=== PATIENT | female | born 1965 | race Caucasian/White ===

== ENCOUNTER 2017-01-15 13:27 | Day surgery (SDC) | payer BC ==
[~2017-01-15] VITALS: Ht 157.5 cm; Wt 80.6 kg
[~2017-01-15 13:27] MED LIST: ENALAPRIL; GLYBURIDE; METF500T4
[2017-01-15 13:58] VITALS: Ht 157.5 cm; Wt 80.6 kg
[2017-01-15] MEDS ORDERED: METF1000 PO (14:01)
[2017-01-15] MEDS ORDERED: GLIP5TAB13 PO (14:01)
[2017-01-15] MEDS ORDERED: DULA1.5P SQ (14:01)
--- NOTE | 2017-01-15 16:36 | OPPN ---
Date/Time of Note Date/Time of Note DATE: 01/15/17 TIME: 16:34 Proc Note GI Procedure Date 01/15/17 Indication: screening/surveillance Pre-procedure Diagnosis CRC screening Post-procedure Diagnosis Impression: Moderate-sized internal hemorrhoids Otherwise normal colonoscopy to cecum. Plan: Follow up as scheduled] High fiber diet Annual hemoccult stool testing [Screening colonoscopy in 10 years] . Procedure Performed: Colonoscopy Surgeon IMER CONTRERAS MD See signature line Health Occupations Teacher none Anesthesia Type: moderate sedation (Versed 4 mg/fentanyl 75 mcg) Tourniquet Time none EBL none Transfusion required none Biopsy 1: None Grafts/Implants none Tubes/Drains none Complication(s) none Disposition: home Procedure Description After informed consent, with the patient/relatives understanding the procedure, its indications and potential risks and complications, including but not limited to: Allergic reaction, bleeding, perforation, infection, and after all pertinent questions were answered to the patient's satisfaction, the patient/ relatives signed the witnessed informed consent. Following this, premedication was administered slowly IV push under careful cardiovascular and respiratory monitoring with pulse OXIM[employer]RY, automatic blood pressure, and potline monitor. Once the sedative effect was achieved, the patient was placed in the left lateral decubitus position, digital rectal examination was performed. The colonoscope was then introduced and advanced under visual control throughout all segments of the colon including: the rectum, sigmoid, descending colon, splenic flexure, transverse colon, hepatic flexure, ascending colon and finally reaching the cecum which was clearly identified by transillumination, finger indentation and the ileocecal valve. Careful examination of the mucosa of the lower gastrointestinal tract both on insertion as well as withdrawal of the instrument disclosed the following findings: PREPARATION QUALITY: [Adequate], RECTAL EXAM: The anorectal area was visualized examined and digital rectal examination performed with the following findings: No evidence of perirectal disease, no masses. COLONIC MUCOSA: The mucosa of all segments of the colon was carefully examined and showed the following findings: the examined mucosa appears within normal limits. There is no evidence of inflammatory changes, diverticular formation, polyps or other neoplasms, vascular malformation, or any other abnormality. Moderate-sized internal hemorrhoids The instrument was then withdrawn, the patient tolerated the procedure well and was transferred out of the Endoscopy Suite awake and in good condition to continue recovery under observation. Copies To: CC: IMER CONTRERAS MD, MORDO MD Jan 15, 2017 16:36
[2017-01-15] MEDS ORDERED: MIDAZOLAM 1 MG/ML 2 ML INJ ONE ×2 (17:04)
[2017-01-15] MEDS ORDERED: FENTAnyl 50 MCG/ML VIAL ONE (17:04)
[2017-01-15 17:14] VITALS: BP 112/67; PULSE 86; RESP 20
== END 2017-01-15 17:42 | disposition home or self-care (01) ==
LOC: GIL 13:27
PROVIDERS: ATTEND Internal Medicine Gastroenterology
DX: Z12.11 Encounter for screening for malignant neoplasm of colon (principal); K64.8 Other hemorrhoids; E11.9 Type 2 diabetes mellitus without complications
CPT/HCPCS: 45378; 82962; J2250; J3010; Z7610

== ENCOUNTER 2017-09-13 12:52 | Day surgery (SDC) | END 2017-09-13 16:24 | disposition home or self-care (01) ==

== ENCOUNTER 2017-11-11 04:33 | Emergency (ER) | END 2017-11-11 05:34 | disposition home or self-care (01) ==

== ENCOUNTER 2018-01-16 09:01 | Emergency (ER) | END 2018-01-16 13:47 | disposition home or self-care (01) ==